=== PATIENT | male | born 1990 | race Caucasian/White ===

== ENCOUNTER 2023-01-05 12:59 | Emergency (ER) | payer MEDICAID ==
[~2023-01-05] VITALS: Ht 203.2 cm; Wt 150.0 kg
[2023-01-05] MEDS ORDERED: acetaminophen 325mg tablet PO ONE (13:40)
[2023-01-05] MEDS ORDERED: ibuprofen tablet 400 MG TABLET PO ONE (13:40)
[2023-01-05 15:14] LABS: CLARITY,URINE CLEAR (Clear); COLOR,URINE STRAW (Yellow); GLUCOSE, URINE NEGATIVE (Neg); KETONES,URINE NEGATIVE (Neg); LEUKOCYTE ESTERASE ,URINE NEGATIVE (Neg); NITRITES, URINE NEGATIVE (Neg); OCCULT BLOOD,URINE NEGATIVE (Neg); PROTEIN,URINE NEGATIVE (Neg); UROBILINOGEN,URINE 0.2 E.U/dL (0.2-1.0)
[2023-01-05 15:17] LABS: UA COLLECTION TYPE CLN CATCH MIDSTREAM
[2023-01-05 16:40] VITALS: BP 140/90
== END 2023-01-05 16:43 | disposition home or self-care (01) ==
LOC: ER 12:59
DX: N50.811 Right testicular pain (principal); Z72.89 Other problems related to lifestyle
CPT/HCPCS: 76870; 81003; 93976; 99284